=== PATIENT | male | born 1960 | race Caucasian/White ===

== ENCOUNTER 2024-04-15 08:28 | Inpatient (IN) ==
[2024-04-15] MEDS ORDERED: IOPAMIDOL 100 ML BOTTLE IV ONE (08:29)
[2024-04-15] MEDS: IPRATROPIUM/ALBUTEROL 3 ML AMPUL.NEB NEB ONE (09:05)
[2024-04-15] MEDS: FUROSEMIDE 40 MG/4 ML VIAL IV ONE (09:39)
[2024-04-15 09:41] LABS: ALT/SGPT 10 U/L (<40); AST/SGOT 38 U/L (<40); Albumin 3.7 gm/dL (3.2-5.2); Albumin/Globulin Ratio 1.7 (1.0-2.3); Alkaline Phosphatase 56 U/L (39-117); Bilirubin,Total 1.2 mg/dL (0.1-1.0); Blood Urea Nitrogen 15 mg/dL (8-23); Calcium 8.8 mg/dL (8.6-10.4); Carbon Dioxide 34 mmol/L (22-30); Chloride 96 mmol/L (96-108); Globulin 2.2 gm/dL (2.2-3.7); Glomerular Filtration Rate 107; Glucose 102 mg/dL (70-105)
[2024-04-15 09:59] LABS: Basophils # (Auto) 0.08 K/mcL (0.00-0.30); Basophils % (Auto) 1.4 % (0.0-2.0); Eosinophils # (Auto) 0.14 K/mcL (0.00-0.70); Eosinophils % (Auto) 2.5 % (0.0-7.0); Hematocrit 56.6 % (40.1-51.0); Lymphocytes # (Auto) 1.91 K/mcL (1.50-4.80); Lymphocytes % (Auto) 34.2 % (15.5-49.0); Mean Cell Volume 67.7 fL (80.0-100.0); Monocytes % (Auto) 10.7 % (1.0-12.0); Neutrophils % (Auto) 50.1 % (38.0-78.0); Platelet Count 173 K/mcL (140-440); RBC 8.36 M/mcL (4.63-6.08); Red Cell Distribution Width 24.1 % (11.5-14.5); WBC 5.6 K/mcL (4.5-11.0)
[2024-04-15] MEDS: guaiFENesin 600 MG TAB.SR.12H PO ONE (12:23)
[2024-04-15] MEDS ORDERED: ONDANSETRON 4 MG/2 ML VIAL IV PRN (13:24)
[2024-04-15] MEDS ORDERED: IPRATROPIUM 2.5 ML AMPUL.NEB NEB PRN (13:24)
[2024-04-15] MEDS: methylPREDNISolone SOD SUCC 125 MG/2 ML VIAL IV SCH (14:28)
[2024-04-15] MEDS: IPRATROPIUM/ALBUTEROL 3 ML AMPUL.NEB NEB SCH (14:29)
[2024-04-15] MEDS: 0.9 % SODIUM CHLORIDE 10 ML SYRINGE IV SCH (14:31)
[2024-04-15] MEDS: FUROSEMIDE 40 MG/4 ML VIAL IV SCH (16:59)
[2024-04-15] MEDS: QUEtiapine 100 MG TABLET PO SCH (22:06)
[2024-04-15] MEDS: BENZTROPINE 1 MG TABLET PO SCH (22:06)
[2024-04-15] MEDS: LORazepam 1 MG TABLET PO SCH (22:07)
[2024-04-15] MEDS: DOCUSATE SODIUM 100 MG CAPSULE PO SCH (22:07)
[2024-04-15] MEDS: ARIPIPRAZOLE 5 MG TABLET PO SCH (22:07)
[2024-04-15] MEDS: CELECOXIB 200 MG CAPSULE PO SCH (22:07)
[2024-04-15] MEDS: DIVALPROEX SODIUM ER 250 MG TABLET PO SCH (22:08)
[2024-04-15] MEDS: guaiFENesin 600 MG TAB.SR.12H PO SCH (22:09)
[2024-04-16 07:05] LABS: Phosphorous 3.7 mg/dL (2.5-4.5)
[2024-04-16 07:08] LABS: ALT/SGPT 6 U/L (<40); AST/SGOT 16 U/L (<40); Albumin 3.8 gm/dL (3.2-5.2); Albumin/Globulin Ratio 1.7 (1.0-2.3); Alkaline Phosphatase 53 U/L (39-117); Bilirubin,Total 0.9 mg/dL (0.1-1.0); Blood Urea Nitrogen 22 mg/dL (8-23); Carbon Dioxide 39 mmol/L (22-30); Chloride 92 mmol/L (96-108); Globulin 2.2 gm/dL (2.2-3.7); Glomerular Filtration Rate 100; Glucose 281 mg/dL (70-105)
[2024-04-16] MEDS: FERROUS SULFATE 325 MG TABLET PO SCH ×2 (07:18→08:51)
[2024-04-16] MEDS: ACETAMINOPHEN 325 MG TABLET PO PRN (07:19)
[2024-04-16] MEDS: PANTOPRAZOLE 40 MG VIAL IV SCH (07:20)
[2024-04-16 07:34] LABS: Basophils # (Auto) 0.02 K/mcL (0.00-0.30); Basophils % (Auto) 0.6 % (0.0-2.0); Eosinophils # (Auto) 0 K/mcL (0.00-0.70); Eosinophils % (Auto) 0 % (0.0-7.0); Hematocrit 54.6 % (40.1-51.0); Lymphocytes # (Auto) 0.48 K/mcL (1.50-4.80); Lymphocytes % (Auto) 14.3 % (15.5-49.0); Mean Cell Volume 68.9 fL (80.0-100.0); Mean Corpuscular HGB Conc 29.3 g/dL (31.0-36.0); Monocytes # (Auto) 0.07 K/mcL (0.10-0.90); Monocytes % (Auto) 2.1 % (1.0-12.0); Neutrophils % (Auto) 82.1 % (38.0-78.0); Platelet Count 172 K/mcL (140-440); RBC 7.93 M/mcL (4.63-6.08); Red Cell Distribution Width 22.9 % (11.5-14.5); WBC 3.4 K/mcL (4.5-11.0)
[2024-04-16] MEDS ORDERED: NIFEdipine 30 MG TAB.XL.24H PO SCH (09:00)
[2024-04-16] MEDS: ASPIRIN 81 MG TAB.CHEW CHEWED SCH (09:10)
[2024-04-16] MEDS: AZITHROMYCIN 250 MG TABLET PO SCH (09:10)
[2024-04-16] MEDS: FINASTERIDE 5 MG TABLET PO SCH (09:10)
[2024-04-16] MEDS: TAMSULOSIN 0.4 MG CAPSULE PO SCH (09:10)
[2024-04-16] MEDS: LISINOPRIL 5 MG TABLET PO SCH (09:10)
[2024-04-16] MEDS: ENOXAPARIN 40 MG/0.4 ML SYRINGE SQ SCH (09:10)
[2024-04-16] MEDS: ARIPIPRAZOLE 5 MG TABLET PO SCH (09:11)
[2024-04-16] MEDS: LORATADINE 10 MG TABLET PO SCH (09:20)
[2024-04-16] MEDS: QUETIAPINE 150 MG PO SCH (09:21)
[2024-04-16] MEDS: PNEUMOCOCCAL 23-VAL P-SAC VAC 0.5 ML SYRINGE IM ONE (11:14)
[2024-04-16] MEDS: DIGOXIN 125 MCG TABLET PO SCH (14:58)
[2024-04-16] MEDS ORDERED: IBUPROFEN 600 MG TABLET PO PRN (17:15)
[2024-04-17 06:45] LABS: Phosphorous 3.9 mg/dL (2.5-4.5)
[2024-04-17 06:51] LABS: ALT/SGPT < 5 U/L (<40); AST/SGOT 11 U/L (<40); Albumin 3.7 gm/dL (3.2-5.2); Albumin/Globulin Ratio 1.9 (1.0-2.3); Alkaline Phosphatase 48 U/L (39-117); Bilirubin,Total 0.8 mg/dL (0.1-1.0); Blood Urea Nitrogen 37 mg/dL (8-23); Calcium 9.3 mg/dL (8.6-10.4); Carbon Dioxide 38 mmol/L (22-30); Chloride 92 mmol/L (96-108); Glomerular Filtration Rate 107; Glucose 236 mg/dL (70-105)
[2024-04-17] MEDS ORDERED: DEXTROSE 50% 50 ML VIAL IV PRN (07:12)
[2024-04-17] MEDS ORDERED: DEXTROSE 31 GM ORAL.SUSP PO PRN (07:12)
[2024-04-17] MEDS: INSULIN LISPRO 1 UNIT/0.01 ML UNIT SQ SCH (07:50)
[2024-04-17 08:36] LABS: Basophils # (Auto) 0.02 K/mcL (0.00-0.30); Basophils % (Auto) 0.2 % (0.0-2.0); Eosinophils # (Auto) 0 K/mcL (0.00-0.70); Eosinophils % (Auto) 0 % (0.0-7.0); Hematocrit 52.1 % (40.1-51.0); Hemoglobin 15.5 g/dL (13.7-17.5); Lymphocytes # (Auto) 0.45 K/mcL (1.50-4.80); Lymphocytes % (Auto) 4.3 % (15.5-49.0); Mean Corpuscular HGB Conc 29.8 g/dL (31.0-36.0); Monocytes # (Auto) 0.22 K/mcL (0.10-0.90); Monocytes % (Auto) 2.1 % (1.0-12.0); Neutrophils % (Auto) 93.2 % (38.0-78.0); Platelet Count 157 K/mcL (140-440); RBC 7.55 M/mcL (4.63-6.08); Red Cell Distribution Width 22.3 % (11.5-14.5); WBC 10.4 K/mcL (4.5-11.0)
[2024-04-17] MEDS: SENNOSIDES 1 TABLET PO PRN (21:10)
[2024-04-18 07:40] LABS: Basophils # (Auto) 0.01 K/mcL (0.00-0.30); Basophils % (Auto) 0.1 % (0.0-2.0); Eosinophils # (Auto) 0 K/mcL (0.00-0.70); Eosinophils % (Auto) 0 % (0.0-7.0); Hematocrit 54.4 % (40.1-51.0); Hemoglobin 16.4 g/dL (13.7-17.5); Lymphocytes # (Auto) 1.55 K/mcL (1.50-4.80); Lymphocytes % (Auto) 16.1 % (15.5-49.0); Mean Cell Volume 68.7 fL (80.0-100.0); Mean Corpuscular HGB Conc 30.1 g/dL (31.0-36.0); Monocytes # (Auto) 0.73 K/mcL (0.10-0.90); Monocytes % (Auto) 7.6 % (1.0-12.0); Neutrophils % (Auto) 75.6 % (38.0-78.0); Platelet Count 149 K/mcL (140-440); RBC 7.92 M/mcL (4.63-6.08); Red Cell Distribution Width 23.2 % (11.5-14.5); WBC 9.6 K/mcL (4.5-11.0)
[2024-04-18 08:06] LABS: ALT/SGPT < 5 U/L (<40); AST/SGOT 14 U/L (<40); Albumin 3.8 gm/dL (3.2-5.2); Albumin/Globulin Ratio 1.9 (1.0-2.3); Alkaline Phosphatase 47 U/L (39-117); Bilirubin,Total 1.1 mg/dL (0.1-1.0); Blood Urea Nitrogen 34 mg/dL (8-23); Calcium 9.7 mg/dL (8.6-10.4); Carbon Dioxide 39 mmol/L (22-30); Chloride 93 mmol/L (96-108); Glomerular Filtration Rate 115; Glucose 113 mg/dL (70-105)
[2024-04-18] MEDS: methylPREDNISolone SOD SUCC 125 MG/2 ML VIAL IV SCH (08:54)
[2024-04-18] MEDS: FUROSEMIDE 40 MG/4 ML VIAL IV ONE (17:20)
[2024-04-19 08:09] LABS: Phosphorous 3.5 mg/dL (2.5-4.5)
[2024-04-19 08:11] LABS: ALT/SGPT 12 U/L (<40); AST/SGOT 30 U/L (<40); Albumin 3.8 gm/dL (3.2-5.2); Albumin/Globulin Ratio 1.7 (1.0-2.3); Alkaline Phosphatase 50 U/L (39-117); Bilirubin,Total 1.2 mg/dL (0.1-1.0); Blood Urea Nitrogen 26 mg/dL (8-23); Calcium 9.6 mg/dL (8.6-10.4); Carbon Dioxide 32 mmol/L (22-30); Chloride 89 mmol/L (96-108); Globulin 2.2 gm/dL (2.2-3.7); Glomerular Filtration Rate 115; Glucose 92 mg/dL (70-105)
[2024-04-19 09:40] LABS: Basophils # (Auto) 0.02 K/mcL (0.00-0.30); Basophils % (Auto) 0.3 % (0.0-2.0); Eosinophils # (Auto) 0.01 K/mcL (0.00-0.70); Eosinophils % (Auto) 0.2 % (0.0-7.0); Hemoglobin 16.4 g/dL (13.7-17.5); Lymphocytes # (Auto) 2.03 K/mcL (1.50-4.80); Lymphocytes % (Auto) 30.9 % (15.5-49.0); Mean Cell Volume 68.2 fL (80.0-100.0); Mean Corpuscular HGB Conc 29.8 g/dL (31.0-36.0); Monocytes # (Auto) 0.57 K/mcL (0.10-0.90); Monocytes % (Auto) 8.7 % (1.0-12.0); Neutrophils % (Auto) 59.6 % (38.0-78.0); Platelet Count 142 K/mcL (140-440); RBC 8.06 M/mcL (4.63-6.08); Red Cell Distribution Width 22.5 % (11.5-14.5); WBC 6.6 K/mcL (4.5-11.0)
[2024-04-19] MEDS: FUROSEMIDE 40 MG/4 ML VIAL IV SCH (10:34)
[2024-04-20] MEDS ORDERED: predniSONE 20 MG TABLET PO SCH (08:00)
[2024-04-20] MEDS: methylPREDNISolone SOD SUCC 40 MG/ML VIAL IV SCH (08:16)
[2024-04-20] MEDS: PANTOPRAZOLE 40 MG TABLET PO SCH (08:17)
[2024-04-20 14:22] LABS: ALT/SGPT 16 U/L (<40); AST/SGOT 17 U/L (<40); Albumin 3.7 gm/dL (3.2-5.2); Albumin/Globulin Ratio 1.9 (1.0-2.3); Alkaline Phosphatase 51 U/L (39-117); Bilirubin,Total 1.4 mg/dL (0.1-1.0); Blood Urea Nitrogen 20 mg/dL (8-23); Calcium 9.8 mg/dL (8.6-10.4); Carbon Dioxide 33 mmol/L (22-30); Chloride 90 mmol/L (96-108); Glomerular Filtration Rate 115; Glucose 275 mg/dL (70-105)
[2024-04-20 14:52] LABS: Basophils # (Auto) 0 K/mcL (0.00-0.30); Basophils % (Auto) 0 % (0.0-2.0); Eosinophils # (Auto) 0 K/mcL (0.00-0.70); Eosinophils % (Auto) 0 % (0.0-7.0); Hematocrit 54.4 % (40.1-51.0); Hemoglobin 16.1 g/dL (13.7-17.5); Lymphocytes # (Auto) 0.32 K/mcL (1.50-4.80); Lymphocytes % (Auto) 4.7 % (15.5-49.0); Mean Cell Volume 68.6 fL (80.0-100.0); Mean Corpuscular HGB Conc 29.6 g/dL (31.0-36.0); Monocytes # (Auto) 0.16 K/mcL (0.10-0.90); Monocytes % (Auto) 2.3 % (1.0-12.0); Neutrophils % (Auto) 92.7 % (38.0-78.0); Platelet Count 131 K/mcL (140-440); RBC 7.93 M/mcL (4.63-6.08); Red Cell Distribution Width 21.7 % (11.5-14.5); WBC 6.9 K/mcL (4.5-11.0)
[2024-04-21] MEDS ORDERED: methylPREDNISolone 1 PACKET TABLET PO SCH (07:00)
== END 2024-04-20 16:40 | disposition home or self-care (01) | DRG 291 ==
LOC: ED 08:28 → ICU 13:05
PROVIDERS: ADMIT Internal Medicine; ATTEND Student in an Organized Health Care Education/Training Program

== ENCOUNTER 2025-02-09 10:08 | Inpatient (IN) ==
[2025-02-09] MEDS: FUROSEMIDE 100 MG/10 ML VIAL IV ONE (10:48)
[2025-02-09 11:14] LABS: ALT/SGPT 46 U/L (<40); AST/SGOT 34 U/L (<40); Albumin 3.5 gm/dL (3.2-5.2); Albumin/Globulin Ratio 1.8 (1.0-2.3); Alkaline Phosphatase 72 U/L (39-117); Bilirubin,Total 3.6 mg/dL (0.1-1.0); Blood Urea Nitrogen 36 mg/dL (8-23); Calcium 9.4 mg/dL (8.6-10.4); Carbon Dioxide 36 mmol/L (22-30); Chloride 90 mmol/L (96-108); Globulin 1.9 gm/dL (2.2-3.7); Glomerular Filtration Rate 95; Glucose 173 mg/dL (70-105); Potassium 4.1 mmol/L (3.3-5.1); Sodium 140 mmol/L (133-145)
[2025-02-09 12:05] LABS: Basophils # (Auto) 0.09 K/mcL (0.00-0.30); Eosinophils # (Auto) 0.06 K/mcL (0.00-0.70); Eosinophils % (Auto) 0.7 % (0.0-7.0); Hematocrit 65.3 % (40.1-51.0); Hemoglobin 20.3 g/dL (13.7-17.5); Lymphocytes # (Auto) 2.52 K/mcL (1.50-4.80); Lymphocytes % (Auto) 27.7 % (15.5-49.0); Mean Cell Volume 77.1 fL (80.0-100.0); Mean Corpuscular HGB Conc 31.1 g/dL (31.0-36.0); Monocytes % (Auto) 13.2 % (1.0-12.0); Neutrophils % (Auto) 56.2 % (38.0-78.0); Platelet Count 142 K/mcL (140-440); RBC 8.47 M/mcL (4.63-6.08); Red Cell Distribution Width 26.9 % (11.5-14.5); WBC 9.1 K/mcL (4.5-11.0)
[2025-02-09 13:18] LABS: ABG Methemoglobin 0.5 % (0.4-1.5); Total Hemoglobin 20.9 gm/Dl (13.5-16.5); VBG Base Excess 8 (-2-3); VBG HCO3 35.9 mmol/L (24.0-28.0); VBG Oxygen Saturation 89.4 % (40.0-70.0); VBG PCO2 59.1 mmHg (41.0-51.0); VBG PO2 98.5 mmHg (25.0-40.0); VBG Total CO2 37.7 mmol/L (25.0-29.0)
[2025-02-09] MEDS: METOPROLOL TARTRATE 5 MG/5 ML VIAL IV ONE ×3 (13:56→19:07)
[2025-02-09] MEDS: MAGNESIUM SULFATE 2 GM/50 ML BAG IV ONE (13:57)
[2025-02-09] MEDS: cefTRIAXone 1 GM VIAL IV ONE (13:57)
[2025-02-09] MEDS ORDERED: ONDANSETRON 4 MG/2 ML VIAL IV PRN (16:35)
[2025-02-09] MEDS ORDERED: SENNOSIDES 1 TABLET PO PRN (16:35)
[2025-02-09] MEDS ORDERED: LACTULOSE 20 GM/30 ML ORAL.SOL PO PRN (16:35)
[2025-02-09] MEDS: FUROSEMIDE 40 MG/4 ML VIAL IV SCH (18:02)
[2025-02-09] MEDS: METOPROLOL TARTRATE 5 MG/5 ML VIAL IV SCH (18:17)
[2025-02-09] MEDS: METOPROLOL TARTRATE 5 MG/5 ML VIAL IV PRN (19:02)
[2025-02-09] MEDS: QUEtiapine 100 MG TABLET PO SCH (20:52)
[2025-02-09] MEDS: LORazepam 1 MG TABLET PO SCH (20:52)
[2025-02-09] MEDS: METOPROLOL TARTRATE 50 MG TABLET PO SCH (20:52)
[2025-02-09] MEDS: BENZTROPINE 1 MG TABLET PO SCH (20:52)
[2025-02-09] MEDS: DIVALPROEX SODIUM ER 250 MG TABLET PO SCH (20:52)
[2025-02-09] MEDS: ARIPIPRAZOLE 5 MG TABLET PO SCH (20:52)
[2025-02-09] MEDS: LIDOCAINE 2% URO-JET 10 ML JEL.PF.APP UR ONE (20:53)
[2025-02-09] MEDS: tiZANidine 4 MG TABLET PO SCH (20:53)
[2025-02-09] MEDS: ENOXAPARIN 40 MG/0.4 ML SYRINGE SQ SCH (20:53)
[2025-02-09] MEDS: 0.9 % SODIUM CHLORIDE 10 ML SYRINGE IV SCH (20:53)
[2025-02-09] MEDS ORDERED: QUETIAPINE 400 MG PO SCH (21:00)
[2025-02-10] MEDS: IPRATROPIUM/ALBUTEROL 3 ML AMPUL.NEB NEB PRN (00:20)
[2025-02-10 07:31] LABS: Basophils % (Auto) 1.6 % (0.0-2.0); Eosinophils # (Auto) 0.21 K/mcL (0.00-0.70); Eosinophils % (Auto) 3.4 % (0.0-7.0); Hematocrit 59.6 % (40.1-51.0); Hemoglobin 18.7 g/dL (13.7-17.5); Lymphocytes # (Auto) 2.52 K/mcL (1.50-4.80); Lymphocytes % (Auto) 40.6 % (15.5-49.0); Mean Cell Volume 77.2 fL (80.0-100.0); Mean Corpuscular HGB Conc 31.4 g/dL (31.0-36.0); Monocytes # (Auto) 0.76 K/mcL (0.10-0.90); Monocytes % (Auto) 12.2 % (1.0-12.0); Neutrophils % (Auto) 40.9 % (38.0-78.0); Platelet Count 113 K/mcL (140-440); RBC 7.72 M/mcL (4.63-6.08); Red Cell Distribution Width 26.3 % (11.5-14.5); WBC 6.2 K/mcL (4.5-11.0)
[2025-02-10 07:40] LABS: ALT/SGPT 37 U/L (<40); AST/SGOT 24 U/L (<40); Albumin 3.2 gm/dL (3.2-5.2); Albumin/Globulin Ratio 1.7 (1.0-2.3); Alkaline Phosphatase 58 U/L (39-117); Bilirubin,Direct 1.2 mg/dL (<0.3); Bilirubin,Total 2.3 mg/dL (0.1-1.0); Blood Urea Nitrogen 37 mg/dL (8-23); Carbon Dioxide 39 mmol/L (22-30); Chloride 91 mmol/L (96-108); Globulin 1.9 gm/dL (2.2-3.7); Glomerular Filtration Rate 100; Glucose 141 mg/dL (70-105); Lactate Dehydrogenase 276 U/L (135-225); Phosphorous 4.9 mg/dL (2.5-4.5); Potassium 3.7 mmol/L (3.3-5.1); Sodium 143 mmol/L (133-145); Triglycerides 92 mg/dL (<150); Uric Acid 18.1 mg/dL (2.5-8.0)
[2025-02-10] MEDS: ARIPIPRAZOLE 5 MG TABLET PO SCH (08:43)
[2025-02-10] MEDS: ASPIRIN 81 MG TAB.CHEW PO SCH (08:43)
[2025-02-10] MEDS: LORATADINE 10 MG TABLET PO SCH (08:45)
[2025-02-10] MEDS: TAMSULOSIN 0.4 MG CAPSULE PO SCH (08:45)
[2025-02-10] MEDS: FINASTERIDE 5 MG TABLET PO SCH (08:46)
[2025-02-10] MEDS: FERROUS SULFATE 325 MG TABLET PO SCH (08:46)
[2025-02-10] MEDS: QUETIAPINE 150 MG PO SCH (08:49)
[2025-02-10] MEDS: AZITHROMYCIN 250 MG TABLET PO SCH (10:26)
[2025-02-10] MEDS: FUROSEMIDE 100 MG/10 ML VIAL IV SCH ×2 (10:26→20:10)
[2025-02-10] MEDS: acetaZOLAMIDE SOD 500 MG VIAL IV ONE (19:33)
[2025-02-11 06:12] LABS: ALT/SGPT 33 U/L (<40); AST/SGOT 31 U/L (<40); Albumin 3.1 gm/dL (3.2-5.2); Albumin/Globulin Ratio 1.4 (1.0-2.3); Alkaline Phosphatase 57 U/L (39-117); Bilirubin,Direct 0.9 mg/dL (<0.3); Bilirubin,Total 2.5 mg/dL (0.1-1.0); Blood Urea Nitrogen 34 mg/dL (8-23); Calcium 9.2 mg/dL (8.6-10.4); Carbon Dioxide 34 mmol/L (22-30); Chloride 93 mmol/L (96-108); Globulin 2.2 gm/dL (2.2-3.7); Glomerular Filtration Rate 90; Glucose 134 mg/dL (70-105); Lactate Dehydrogenase 315 U/L (135-225); Phosphorous 4.6 mg/dL (2.5-4.5); Potassium 4.4 mmol/L (3.3-5.1); Sodium 141 mmol/L (133-145); Triglycerides 83 mg/dL (<150); Uric Acid 17.4 mg/dL (2.5-8.0)
[2025-02-11 07:25] LABS: Basophils % (Auto) 1.6 % (0.0-2.0); Eosinophils # (Auto) 0.18 K/mcL (0.00-0.70); Eosinophils % (Auto) 2.9 % (0.0-7.0); Hematocrit 61.3 % (40.1-51.0); Hemoglobin 19.2 g/dL (13.7-17.5); Lymphocytes # (Auto) 2.49 K/mcL (1.50-4.80); Lymphocytes % (Auto) 39.7 % (15.5-49.0); Mean Cell Volume 78.5 fL (80.0-100.0); Mean Corpuscular HGB Conc 31.3 g/dL (31.0-36.0); Monocytes # (Auto) 0.68 K/mcL (0.10-0.90); Monocytes % (Auto) 10.8 % (1.0-12.0); Platelet Count 123 K/mcL (140-440); RBC 7.81 M/mcL (4.63-6.08); Red Cell Distribution Width 26.2 % (11.5-14.5); WBC 6.3 K/mcL (4.5-11.0)
[2025-02-11] MEDS: ALBUMIN HUMAN 25 GM/100 ML BAG IV ONE ×2 (08:38→19:29)
[2025-02-11] MEDS: acetaZOLAMIDE SOD 500 MG VIAL IV ONE (08:41)
[2025-02-12 07:21] LABS: Basophils # (Auto) 0.07 K/mcL (0.00-0.30); Basophils % (Auto) 1.2 % (0.0-2.0); Eosinophils # (Auto) 0.19 K/mcL (0.00-0.70); Eosinophils % (Auto) 3.3 % (0.0-7.0); Hemoglobin 17.7 g/dL (13.7-17.5); Lymphocytes # (Auto) 2.32 K/mcL (1.50-4.80); Lymphocytes % (Auto) 39.8 % (15.5-49.0); Mean Cell Volume 77.2 fL (80.0-100.0); Mean Corpuscular HGB Conc 31.1 g/dL (31.0-36.0); Monocytes # (Auto) 0.93 K/mcL (0.10-0.90); Neutrophils % (Auto) 38.8 % (38.0-78.0); Platelet Count 103 K/mcL (140-440); RBC 7.38 M/mcL (4.63-6.08); WBC 5.8 K/mcL (4.5-11.0)
[2025-02-12 07:32] LABS: ALT/SGPT 26 U/L (<40); AST/SGOT 22 U/L (<40); Albumin 3.9 gm/dL (3.2-5.2); Alkaline Phosphatase 53 U/L (39-117); Bilirubin,Direct 0.9 mg/dL (<0.3); Bilirubin,Total 2.7 mg/dL (0.1-1.0); Blood Urea Nitrogen 31 mg/dL (8-23); Calcium 9.4 mg/dL (8.6-10.4); Carbon Dioxide 43 mmol/L (22-30); Chloride 89 mmol/L (96-108); Glomerular Filtration Rate 100; Glucose 79 mg/dL (70-105); Lactate Dehydrogenase 223 U/L (135-225); Phosphorous 3.8 mg/dL (2.5-4.5); Potassium 3.4 mmol/L (3.3-5.1); Sodium 141 mmol/L (133-145); Triglycerides 73 mg/dL (<150); Uric Acid 17.6 mg/dL (2.5-8.0)
[2025-02-12] MEDS: ALBUMIN HUMAN 25 GM/100 ML BAG IV ONE (08:33)
[2025-02-12] MEDS: acetaZOLAMIDE SOD 500 MG VIAL IV ONE (08:35)
[2025-02-12] MEDS: ACETAMINOPHEN 325 MG TABLET PO PRN (08:36)
[2025-02-12] MEDS: POTASSIUM CHLORIDE 20 MEQ TABLET PO ONE (08:37)
[2025-02-12] MEDS: 0.9 % SODIUM CHLORIDE 250 ML IV ONE (19:51)
[2025-02-12] MEDS: ALBUMIN HUMAN 25 GM/100 ML BAG IV SCH (20:22)
[2025-02-13 07:00] LABS: ALT/SGPT 22 U/L (<40); AST/SGOT 26 U/L (<40); Albumin 3.9 gm/dL (3.2-5.2); Albumin/Globulin Ratio 2.3 (1.0-2.3); Alkaline Phosphatase 49 U/L (39-117); Bilirubin,Direct 0.7 mg/dL (<0.3); Bilirubin,Total 2.2 mg/dL (0.1-1.0); Blood Urea Nitrogen 26 mg/dL (8-23); Calcium 9.3 mg/dL (8.6-10.4); Carbon Dioxide 39 mmol/L (22-30); Chloride 94 mmol/L (96-108); Globulin 1.7 gm/dL (2.2-3.7); Glomerular Filtration Rate 106; Glucose 121 mg/dL (70-105); Lactate Dehydrogenase 243 U/L (135-225); Phosphorous 2.9 mg/dL (2.5-4.5); Sodium 143 mmol/L (133-145); Triglycerides 76 mg/dL (<150); Uric Acid 16.1 mg/dL (2.5-8.0)
[2025-02-13] MEDS: acetaZOLAMIDE SOD 500 MG VIAL IV SCH (08:30)
[2025-02-13 09:02] LABS: Basophils # (Auto) 0.06 K/mcL (0.00-0.30); Basophils % (Auto) 1.4 % (0.0-2.0); Eosinophils # (Auto) 0.15 K/mcL (0.00-0.70); Eosinophils % (Auto) 3.4 % (0.0-7.0); Hematocrit 54.3 % (40.1-51.0); Hemoglobin 16.4 g/dL (13.7-17.5); Lymphocytes # (Auto) 1.13 K/mcL (1.50-4.80); Lymphocytes % (Auto) 25.5 % (15.5-49.0); Mean Cell Volume 79.6 fL (80.0-100.0); Mean Corpuscular HGB Conc 30.2 g/dL (31.0-36.0); Monocytes # (Auto) 0.56 K/mcL (0.10-0.90); Monocytes % (Auto) 12.6 % (1.0-12.0); Platelet Count 96 K/mcL (140-440); RBC 6.82 M/mcL (4.63-6.08); Red Cell Distribution Width 24.5 % (11.5-14.5); WBC 4.4 K/mcL (4.5-11.0)
[2025-02-14 06:53] LABS: ALT/SGPT 18 U/L (<40); AST/SGOT 19 U/L (<40); Albumin 4.1 gm/dL (3.2-5.2); Albumin/Globulin Ratio 2.4 (1.0-2.3); Alkaline Phosphatase 43 U/L (39-117); Bilirubin,Direct 0.6 mg/dL (<0.3); Bilirubin,Total 2.9 mg/dL (0.1-1.0); Blood Urea Nitrogen 21 mg/dL (8-23); Calcium 9.8 mg/dL (8.6-10.4); Carbon Dioxide 38 mmol/L (22-30); Chloride 96 mmol/L (96-108); Globulin 1.7 gm/dL (2.2-3.7); Glomerular Filtration Rate 115; Glucose 76 mg/dL (70-105); Lactate Dehydrogenase 193 U/L (135-225); Phosphorous 2.4 mg/dL (2.5-4.5); Potassium 3.6 mmol/L (3.3-5.1); Sodium 143 mmol/L (133-145); Triglycerides 105 mg/dL (<150)
[2025-02-14 07:02] LABS: Basophils # (Auto) 0.07 K/mcL (0.00-0.30); Basophils % (Auto) 1.6 % (0.0-2.0); Eosinophils # (Auto) 0.23 K/mcL (0.00-0.70); Eosinophils % (Auto) 5.3 % (0.0-7.0); Hematocrit 54.2 % (40.1-51.0); Hemoglobin 16.3 g/dL (13.7-17.5); Lymphocytes # (Auto) 1.42 K/mcL (1.50-4.80); Lymphocytes % (Auto) 32.9 % (15.5-49.0); Mean Cell Volume 80.1 fL (80.0-100.0); Mean Corpuscular HGB Conc 30.1 g/dL (31.0-36.0); Monocytes # (Auto) 0.54 K/mcL (0.10-0.90); Monocytes % (Auto) 12.5 % (1.0-12.0); Neutrophils % (Auto) 46.5 % (38.0-78.0); Platelet Count 90 K/mcL (140-440); RBC 6.77 M/mcL (4.63-6.08); Red Cell Distribution Width 24.2 % (11.5-14.5); WBC 4.3 K/mcL (4.5-11.0)
[2025-02-14] MEDS: TORSEMIDE 20 MG TABLET PO SCH (19:07)
[2025-02-15 07:59] LABS: Basophils # (Auto) 0.06 K/mcL (0.00-0.30); Basophils % (Auto) 1.6 % (0.0-2.0); Eosinophils # (Auto) 0.22 K/mcL (0.00-0.70); Eosinophils % (Auto) 5.8 % (0.0-7.0); Hematocrit 56.7 % (40.1-51.0); Hemoglobin 17.4 g/dL (13.7-17.5); Lymphocytes # (Auto) 1.04 K/mcL (1.50-4.80); Lymphocytes % (Auto) 27.3 % (15.5-49.0); Mean Cell Volume 78.3 fL (80.0-100.0); Mean Corpuscular HGB Conc 30.7 g/dL (31.0-36.0); Monocytes % (Auto) 13.1 % (1.0-12.0); Neutrophils % (Auto) 51.4 % (38.0-78.0); Platelet Count 93 K/mcL (140-440); RBC 7.24 M/mcL (4.63-6.08); Red Cell Distribution Width 23.9 % (11.5-14.5); WBC 3.8 K/mcL (4.5-11.0)
[2025-02-15 08:13] LABS: ALT/SGPT 21 U/L (<40); AST/SGOT 18 U/L (<40); Albumin 4.2 gm/dL (3.2-5.2); Albumin/Globulin Ratio 2.2 (1.0-2.3); Alkaline Phosphatase 49 U/L (39-117); Bilirubin,Total 2.7 mg/dL (0.1-1.0); Blood Urea Nitrogen 25 mg/dL (8-23); Carbon Dioxide 34 mmol/L (22-30); Chloride 99 mmol/L (96-108); Globulin 1.9 gm/dL (2.2-3.7); Glomerular Filtration Rate 115; Glucose 116 mg/dL (70-105); Lactate Dehydrogenase 157 U/L (135-225); Phosphorous 3.2 mg/dL (2.5-4.5); Potassium 3.5 mmol/L (3.3-5.1); Sodium 143 mmol/L (133-145); Triglycerides 105 mg/dL (<150); Uric Acid 12.2 mg/dL (2.5-8.0)
[2025-02-15] MEDS: TORSEMIDE 20 MG TABLET PO SCH (08:42)
[2025-02-15 12:02] VITALS: TEMP 98.2; O2SAT 92
== END 2025-02-15 12:00 | DRG 291 ==
LOC: ED 10:08 → ICU 16:27 → MEDSUR 02-14 19:22
PROVIDERS: ADMIT Student in an Organized Health Care Education/Training Program; ATTEND Student in an Organized Health Care Education/Training Program